=== PATIENT | female | born 1970 | race African-American/Black ===

== ENCOUNTER 2021-01-18 12:14 | Emergency (ER) | payer OTHER ==
[2021-01-18 12:53] VITALS: BP 121/60; PULSE 72; RESP 19; TEMP 97.9
--- NOTE | 2021-01-18 14:05 | ED ---
General Adult HPI - General Chief complaint: Fall Stated complaint: Fall 7 steps/head&ankle injury Time Seen by Provider: 01/18/21 13:42 Source: patient, RN notes reviewed, old records reviewed Mode of arrival: ambulatory Limitations: no limitations - History of Present Illness Initial comments: 50-year-old female presenting status post fall. Patient had fallen down several stairs injuring her right knee and right ankle. Her significant pain is in her right ankle. There was a minor head injury without loss of consciousness. Patient denies anticoagulation. She denies head neck or back pain. - Related Data Allergies Allergy/AdvReac Type Severity Reaction Status Date / Time codeine AdvReac Unknown Verified 01/18/21 12:54 Review of Systems ROS Statement: Those systems with pertinent positive or pertinent negative responses have been documented in the HPI. ROS Other: All systems not noted in ROS Statement are negative. General Exam Limitations: no limitations General appearance: alert, in no apparent distress Head exam: Present: atraumatic, normocephalic Eye exam: Present: normal appearance, PERRL ENT exam: Present: normal exam Neck exam: Present: normal inspection. Absent: tenderness, meningismus Respiratory exam: Present: normal lung sounds bilaterally. Absent: respiratory distress, wheezes Cardiovascular Exam: Present: regular rate, normal rhythm GI/Abdominal exam: Present: soft. Absent: distended, tenderness, guarding Extremities exam: Present: joint swelling (Right lower extremity: The right knee is within normal limits without bony tenderness or effusion. The right ankle has some soft tissue swelling predominantly on the lateral malleolus and into the mid foot. Distal pulses are intact, normal cap refill, normal range of motion.) Course Vital Signs 01/18/21 12:49 Temperature 97.9 F Pulse Rate 72 Respiratory 19 Rate Blood Pressure 121/60 O2 Sat by Pulse 99 Oximetry Procedures - Orthopedic Splinting/Casting Injury #1 Side: left Lower Extremity Injury Location: ankle Lower Extremity Immobilizer: stirrup splint Other Orthopedic Equipment: crutches Medical Decision Making - Medical Decision Making X-rays are performed, there negative for acute bony abnormality. Patient is placed in a splint, she's given orthopedic follow-up. She is prescribed crutc hes. She will follow-up for repeat imaging as necessary. Take Motrin for pain. Rice. Disposition Clinical Impression: Fall, Ankle sprain Disposition: HOME SELF-CARE Condition: Good Instructions (If sedation given, give patient instructions): Ankle Sprain (ED) Is patient prescribed a controlled substance at d/c from ED?: No Referrals: Nonstaff,Physician [Primary Care Provider] - 1-2 days Roby Reynolds MD [Medical Doctor] - 1-2 days Time of Disposition: 14:05
--- NOTE | 2021-01-18 15:27 | XR ---
EXAMINATION TYPE: XR ankle complete RT DATE OF EXAM: 01/18/2021 COMPARISON: None HISTORY: Pain, fall TECHNIQUE: 3 view right ankle FINDINGS: Ankle mortise is intact. No acute fracture or dislocation is evident. Mild soft tissue swel ling is over the ankle slightly greater along the medial ankle. Follow-up exam recommended 7-10 days from acute trauma for continued pain. IMPRESSION: 1. Mild soft tissue swelling slightly greater on the medial aspect of the right ankle. 2. No acute fractures evident. Follow up exams can be performed as clinically indicated.
--- NOTE | 2021-01-18 15:27 | XR ---
EXAMINATION TYPE: XR knee limited RT DATE OF EXAM: 01/18/2021 COMPARISON: None HISTORY: Fall, pain TECHNIQUE: 2 view right knee FINDINGS: No acute fracture or dislocation is evident. Joint spaces are preserved. No joint effusion is evident. IMPRESSION: 1. Normal 2 view right knee
== END 2021-01-18 14:44 | disposition home or self-care (01) ==
LOC: EC 12:14
DX: S93.491A Sprain of other ligament of right ankle, initial encounter (principal); Z88.5 Allergy status to narcotic agent; W10.8XXA Fall (on) (from) other stairs and steps, initial encounter
CPT/HCPCS: 29515; 99283